=== PATIENT | male | born 1960 | race Caucasian/White ===

== ENCOUNTER 2019-08-22 07:07 | Emergency (ER) | payer OTHER | END 2019-08-22 08:20 | disposition home or self-care (01) | LOC: NAV ERS 07:07 | DX: K56.41 Fecal impaction (principal); I10 Essential (primary) hypertension; K21.9 Gastro-esophageal reflux disease without esophagitis; Z87.891 Personal history of nicotine dependence; Z79.899 Other long term (current) drug therapy | CPT/HCPCS: 82274; 99283 ==